=== PATIENT | male | born 1965 | race Caucasian/White ===

== ENCOUNTER 2021-11-26 07:01 | Emergency (ER) | payer OTHER ==
[~2021-11-26 07:01] MED LIST: ADMELOG SO100 UNIT/1 SC; AMLODIPINE BESY10 MG PO; ASPIRIN EC81 MG PO; ATORVASTATIN CA20 MG PO; BASAGLAR K100 UNIT/1 SQ; BUPRENORPHIN-N1 EACH PO; BUPRENORPHN-NA1 EACH PO; CLOPIDOGREL75 MG PO; FISH OIL 1,0001 EACH PO; HYDROCHLOROTHIA25 MG PO; IMDUR ER TAB 3030 MG PO; LOPRESSOR50 MG PO; VITAMIN D21250 MCG PO; ZESTRIL30 MG PO
== END 2021-11-26 10:54 | disposition left against medical advice (07) ==
LOC: ER1 07:01
DX: I83.91 Asymptomatic varicose veins of right lower extremity (principal); I10 Essential (primary) hypertension; Z88.0 Allergy status to penicillin; W22.8XXA Striking against or struck by other objects, initial encounter; Y92.009 Unspecified place in unspecified non-institutional (private) residence as the place of occurrence of the external cause
CPT/HCPCS: 93971; 99283